=== PATIENT | female | born 1985 | race Caucasian/White ===

== ENCOUNTER 2019-09-13 21:32 | Emergency (ER) | payer OTHER, MEDICAID ==
[~2019-09-13] VITALS: Ht 157.5 cm; Wt 49.9 kg
[2019-09-13] MEDS ORDERED: CLEOCIN HCL150 MG PO ×2 (21:45→22:37)
[2019-09-13 22:43] VITALS: BP 112/70
== END 2019-09-13 22:44 | disposition home or self-care (01) ==
LOC: M.ERS 21:32
DX: K04.7 Periapical abscess without sinus (principal); K02.9 Dental caries, unspecified; Z88.0 Allergy status to penicillin

== ENCOUNTER 2019-09-26 08:54 | Emergency (ER) | payer OTHER ==
[~2019-09-26] VITALS: Ht 157.5 cm; Wt 59.0 kg
[~2019-09-26 08:54] MED LIST: CLEOCIN HCL150 MG PO
[2019-09-26 09:02] VITALS: BP 119/79
[2019-09-26] MEDS ORDERED: NORCO 5-325 TA1 EAC1 PO (09:26)
[2019-09-26] MEDS ORDERED: FLEXERIL PO (09:26)
== END 2019-09-26 09:38 | disposition home or self-care (01) ==
LOC: M.ERS 08:54
DX: S29.012A Strain of muscle and tendon of back wall of thorax, initial encounter (principal); Z88.0 Allergy status to penicillin; X58.XXXA Exposure to other specified factors, initial encounter; Y92.89 Other specified places as the place of occurrence of the external cause; Y93.89 Activity, other specified; Y99.8 Other external cause status